=== PATIENT | female | born 1985 | race Caucasian/White ===

== ENCOUNTER 2021-01-12 16:00 | Emergency (ER) | payer BC, MEDICAID, SELFPAY ==
[2021-01-12 16:02] VITALS: BP 124/74; PULSE 83; RESP 16; TEMP 36.6; O2SAT 98; BMI 25.7
[2021-01-12 16:20] VITALS: BP 124/74; PULSE 77; O2SAT 100
--- NOTE | 2021-01-12 16:24 | [facility].EDGENADL ---
ED Disposition Clinical Impression: Closed head injury Qualifiers: Encounter type: initial encounter Qualified Code(s): S09.90XA - Unspecified injury of head, initial encounter Concussion Qualifiers: Encounter type: initial encounter Loss of consciousness presence/duration: without LOC Qualified Code(s): S06.0X0A - Concussion without loss of consciousness, initial encounter Disposition: Home, Self-Care Condition on Discharge: Good Instructions: DI for Concussion, DI for Closed Head Injury Additional Instructions: You may take [id number] Tylenol and/or Motrin/ibuprofen for your headache. Take the nausea medication as prescribed and as needed. Return to the emergency department if you feel worse in any way. Follow-up with your primary care physician in about 1 week if you do not feel better. Prescriptions: Ondansetron [Ondansetron Odt 8mg Tab] 8 mg PO QID 4 Days #16 tab Transmission Status: Pending to [id number] Referrals: Salome Munoz PA [Primary Care Provider] - - Critical Care Critical Care Time: No Attestation: On 01/12/21, the high probability of a clinically significant, sudden or life threatening deterioration of the following system(s) required my full and direct attention, intervention and personal management. The time I documented below is in addition to time spent performing reported procedures but includes the following listed in this critical care notation. Medical Decision Making - Medical Records Medical records reviewed: Yes: I reviewed the patient's medical records. - Suraj Inquiry Pt receiving controlled substance: No Vital Signs: 01/12/21 16:02 01/12/21 16:20 Temperature 98 F Temperature Source Oral Pulse Rate 77 Pulse Rate [Radial] 83 Respiratory Rate 16 Blood Pressure 124/74 Blood Pressure [Right Arm] 124/74 Blood Pressure Mean [Right Arm] 90 Blood Pressure Position [Right Arm] Sitting 02 Sat by Pulse Oximetry 98 100 Oxygen Delivery Method Room Air - Lab Data Lab Results 01/12/21 16:10: Urine HCG, Qual Negative Orders (Tests/Meds): ED MEDICATIONS Discontinued Medications Generic Name Dose Route Start Last Admin Trade Name Freq PRN Reason Stop Dose Admin Ondansetron HCl 4 mg 01/12/21 16:27 01/12/21 16:29 Ondansetron 4mg Odt SL 01/12/21 16:28 4 mg ONCE ONE Administration - Reevaluation(s) Time: 16:56 Reevaluation #1: Zofran. She is feeling well enough to go home. The patient's physical exam did not reveal any life-threatening or dangerous causes for the patient's symptoms. Medical Decision Narrative: I explained to the patient that since the head injury occurred more than 48 hours ago, the likelihood of a CT of the head showing intracranial abnormalities requiring intervention from this trauma is extremely unlikely. I suggested to the patient that she probably has a mild concussion causing her symptoms. After this discussion the patient has decided to forego the CT of the head and she will receive some ODT Zofran for her nausea. General Adult HPI - General Chief complaint: Head Injury Stated complaint: AO 01/10 fell hit head,dizzy,ARMENDARIZ Time Seen by Provider: 01/12/21 16:24 Mode of Arrival: Ambulatory Source of Information: Patient Limitations: No Limitations Description of Symptoms (Recalled from ER Triage Doc. by RN): TO ED PER [facility] CAR WITH C/O HEADACHE, DIZZINESS, NAUSEA, DOUBLE VISION STATES SLIPPED ON WET FLOOR 2 DAYS AGO HITTING THE LT SIDE OF HEAD. DENIES ANY LOC. PT STATES I JUST WANT TO MAKE SURE EVERYTHING IS OK - History of Present Illness HPI narrative: The patient states that she fell 2 days ago in her kitchen and struck the back of her head against the floor. She denies any loss of consciousness. She states that she continues to feel dizzy and nauseated without vomiting. She would like to get a CT of the head just to make sure that things are okay. - Related Data Previou
[2021-01-12 16:26] LABS: Urine Pregnancy, HCG Qual. Negative (Negative)
[2021-01-12 16:30] VITALS: BP 129/83; PULSE 72; RESP 18; O2SAT 100
[2021-01-12 17:00] VITALS: BP 117/71; PULSE 76; RESP 18; O2SAT 100
[2021-01-12 17:42] VITALS: BP 112/78; PULSE 78; RESP 16; TEMP 36.6; O2SAT 98
== END 2021-01-12 17:43 | disposition home or self-care (01) ==
PROVIDERS: Emergency Provider Emergency Medicine; PCP Physician Assistant
DX: S06.0X0A Concussion without loss of consciousness, initial encounter (principal); W01.0XXA Fall on same level from slipping, tripping and stumbling without subsequent striking against object, initial encounter; Y92.010 Kitchen of single-family (private) house as the place of occurrence of the external cause
CPT/HCPCS: 81025; 99282